=== PATIENT | male | born 2000 | race African-American/Black ===

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

== ENCOUNTER 2019-03-26 17:59 | Emergency (ER) | payer OTHER | END 2019-03-26 19:10 | disposition home or self-care (01) | LOC: ERS 17:59 | DX: S80.02XA Contusion of left knee, initial encounter (principal); F90.9 Attention-deficit hyperactivity disorder, unspecified type; W22.8XXA Striking against or struck by other objects, initial encounter | CPT/HCPCS: 99281 ==

== ENCOUNTER 2022-01-08 22:27 | Emergency (ER) | payer OTHER, SELFPAY | END 2022-01-08 23:33 | disposition home or self-care (01) | LOC: ERS 22:27 | DX: R06.02 Shortness of breath (principal); F17.200 Nicotine dependence, unspecified, uncomplicated | CPT/HCPCS: 71045; 93005 ==